=== PATIENT | female | born 1975 | race Caucasian/White ===

== ENCOUNTER 2022-10-10 22:40 | Emergency (ER) | payer SELFPAY ==
[~2022-10-10] VITALS: Ht 167.6 cm; Wt 106.0 kg
[2022-10-10] MEDS ORDERED: KETOROLAC 60MG/2ML VIAL IM ONE (23:45)
[2022-10-10 23:54] VITALS: BP 151/85
[2022-10-11] MEDS ORDERED: IBUP-2028 MT (00:45)
== END 2022-10-11 01:10 | disposition home or self-care (01) ==
LOC: ER 22:40
DX: M54.50 Low back pain, unspecified (principal); M54.6 Pain in thoracic spine; R51.9 Headache, unspecified; E11.9 Type 2 diabetes mellitus without complications; V43.62XA Car passenger injured in collision with other type car in traffic accident, initial encounter; Y93.89 Activity, other specified; Y92.89 Other specified places as the place of occurrence of the external cause; Y99.8 Other external cause status
CPT/HCPCS: 96372; 99283; J1885